=== PATIENT | female | born 1995 | race Caucasian/White ===

== ENCOUNTER 2022-08-16 19:15 | Outpatient (CLI) | payer BC, MEDICAID, SELFPAY | END 2022-08-16 19:16 | disposition home or self-care (01) | LOC: NFLDUCREF 08-18 10:23 | PROVIDERS: Visit Provider Nurse Practitioner Family | DX: R30.0 Dysuria (principal); N39.0 Urinary tract infection, site not specified | CPT/HCPCS: 87086 ==